=== PATIENT | female | born 1960 | race Caucasian/White ===

== ENCOUNTER → 2021-08-22 13:04 | Outpatient (BNVA) | payer OTHER, SELFPAY | PROVIDERS: Visit Provider Family Medicine | DX: R82.90 Unspecified abnormal findings in urine (principal); Z13.1 Encounter for screening for diabetes mellitus; Z72.0 Tobacco use; Z76.89 Persons encountering health services in other specified circumstances | CPT/HCPCS: 80053; 80061; 81000; 85025 ==

== ENCOUNTER 2021-09-28 08:09 | Day surgery (SDC) | payer OTHER, SELFPAY ==
[2021-09-25 13:25] VITALS: BMI 21.2
[2021-09-28 08:30] VITALS: BP 89/67; PULSE 63; RESP 16; TEMP 36.4; O2SAT 92
[2021-09-28] MEDS: sodium chloride 0.9% 1,000 ML 30 ML IV (08:38)
--- NOTE | 2021-09-28 10:16 | ANES.PREANE2 ---
Pre-Anesthetic Assessment Height/Weight: Height 1.6 m Weight 54.431 kg Temp Pulse Resp BP Pulse Ox 97.5 F L 63 16 89/67 92 09/28/21 08:30 09/28/21 08:30 09/28/21 08:30 09/28/21 08:30 09/28/21 08:30 Preop Diagnosis: need for colon cancer screening Operation Date: 09/28/21 09:30 Proposed Procedures p Colonoscopy 73226,Z12.11(Not Applicable) - Chapito Wheeler DO Familial anesthetic complications: None Was Beta Woody taken within 24 hours: N/A Was Clonidine taken within 24 hours: N/A Last intake: Intake Last Liquid Date 09/27/21 Last Liquid Time 22:00 Last Solid Date 09/26/21 Last Solid Time 21:00 Social Tobacco Exam alert, oriented x 3, clear to auscultation bilaterally and regular rate & rhythm Airway Submandibular: within normal limits Cervical ROM: within normal limits Mallampati: Class II Dentition: false History/ROS No significant complaints Pulmonary None reported CV/HEM None reported None reported Hepatic None reported GI None reported Metabolic None reported Musc/skel None reported Neuropsych None reported Anesthetic Plan ASA status: 2 Anesthesia: Anesthesia Evaluation, General and MAC Other: I discussed with the patient risks, goals, and benefits of MAC and general anesthesia. We discussed spectrum of MAC anesthesia including conversion to general as well as possibility of recall of intraoperative stimuli including discomfort/pain. Patient agrees to proceed with MAC. Risk of > 500 ml blood loss (7ml/kg in children): No Medications/Allergies Home Medications Medication Instructions Recorded Confirmed Last Taken Type No Known Home Medications 08/21/21 09/26/21 Unknown History Allergies Allergy/AdvReac Type Severity Reaction Status Date / Time No Known Allergies Allergy Verified 09/25/21 13:24 Current Medications Generic Name Dose Route Start Last Admin Trade Name Freq PRN Reason Stop Dose Admin Sodium Chloride 1,000 mls @ 30 mls/hr 09/28/21 08:30 09/28/21 08:38 Sodium Chloride 0.9% IV 09/29/21 08:29 30 mls/hr .Q24H MELVINA Administration PFSH Anesthesia Family History Mother Cancer Bladder cancer Family/Other Cancer Breast cancer Social History Smoking and tobacco status: current every day smoker (1 PPD 40+ year history) Data Anesthesia Cardiac Studies: No Data to Display
--- NOTE | 2021-09-28 10:20 | PM.HP ---
History of Present Illness Laurel Rinaldi is a 61 year old female who presents for a screening colonoscopy. She had a screening colonoscopy greater than 10 years ago that was reportedly within normal limits. She denies any symptoms. Review of Systems General: Reports: 10 or more systems reviewed and unremarkable except in HPI and below Medications/Allergies Home Medications Medication Instructions Recorded Confirmed Last Taken Type No Known Home Medications 08/21/21 09/26/21 Unknown History Allergies Allergy/AdvReac Type Severity Reaction Status Date / Time No Known Allergies Allergy Verified 09/25/21 13:24 PFSH Acute PFSH: Family History Mother Cancer Bladder cancer Family/Other Cancer Breast cancer Social History Smoking and tobacco status: current every day smoker (1 PPD 40+ year history) Vitals/I&O/Wt Last Vital Signs Temp 97.5 F L 09/28/21 08:30 Pulse 63 09/28/21 08:30 Resp 16 09/28/21 08:30 BP 89/67 09/28/21 08:30 Pulse Ox 92 09/28/21 08:30 Physical Exam Narrative: general : Patient is well developed , no acute distress, oriented x3 Head : Normal cephalic, a-traumatic. Ears : Pinnae and external canal are normal. Hearing is normal. Eyes : PERRLA, Sclera and injection are normal. No conjunctival discharge. Nose : Mucous membranes are without erythema. Throat : buccal mucosa is normal, gums are without significant recession or hypertrophy. Lungs : Equal chest rise bilaterally, no use of accessory muscles, trachea is midline. Cor : Rate and rhythm are normal. Abdomen : Soft, ND, NT, no g/r/m Extremities : No edema, no cyanosis or clubbing, dorsalis pedis pulses are present bilaterally, non-tender to palpation of calves. Upper extremities are normal bilaterally. Back : non-tender to palpation, no CVA tenderness. Neuro : CN II - XII intact, Upper and lower extremities have equal and full strength A&P Assessment and plan (1) Colon cancer screening: Status: Acute Plan Colonoscopy The risks and benefits of the procedure, including bleeding, infection, intestinal perforation requiring surgery, missed lesion, or explained to the patient. He is understanding of the risks and wishes to proceed. Attestations Medical Necessity Statement*: Patient will not be admitted patient will not be admitted to the hospital Coding Level of Care Code Acute Tubing Oiler for [facility] Fwd Diagnoses Colon cancer screening Z12.11
--- NOTE | 2021-09-28 10:55 | ANE.PACU2 ---
Documented by User: Brandi Santos CRNA 09/28/21 10:56 Inpatient post-anesthesia follow up: Airway intact: Yes Vital signs: Temperature 97.5 F Pulse Rate 63 Respiratory Rate 16 Blood Pressure 89/67 Pulse Oximetry 92 Oxygen Delivery Me thod Room Air Oxygen Flow Rate Fraction of Inspir ed Oxygen Hydration adequate: Yes Nausea and vomiting: No Pain level: 1 Mental status: Baseline
[2021-09-28 10:57] VITALS: BP 101/60; PULSE 63; RESP 16; TEMP 36.6; O2SAT 99
[2021-09-28 11:04] VITALS: BP 110/73; PULSE 57; RESP 16; TEMP 36.7; O2SAT 96
== END 2021-09-28 11:14 | disposition home or self-care (01) ==
PROVIDERS: Visit Provider Surgery
PROC: 0DJD8ZZ Inspection of Lower Intestinal Tract, Via Natural or Artificial Opening Endoscopic (ICD-10-PCS; CPT 45378; principal; 2021-09-28 09:30)
DX: Z12.11 Encounter for screening for malignant neoplasm of colon (principal); F17.210 Nicotine dependence, cigarettes, uncomplicated; D12.5 Benign neoplasm of sigmoid colon
CPT/HCPCS: 45385; 88305; J2704; J7030

== ENCOUNTER 2021-12-06 10:14 | Outpatient (CLI) | payer OTHER, SELFPAY ==
--- NOTE | 2021-12-06 10:18 | CT_ITS ---
WS: [email or web address] LDCT LUNG CANCER SCREENING TECHNIQUE: Noncontrast CT of the chest with coronal and sagittal reformatted images. CLINICAL INFORMATION: Z72.0 - Tobacco use COMPARISON: None. DLP: 73.72 mGy.cm DIvol: Mean CTDIvol: 1.60 (mGy) All CT scans at [facility] use at least one of these dose optimization techniques: automat ed exposure control; mA and/or kV adjustment per patient size (includes targeted exams where dose is matched to clinical indication); or iterative reconstruction. FINDINGS: Patchy semisolid nodular groundglass opacity in RIGHT middle lobe with bronchiectasis. This may be in fectious or inflammatory but nonspecific. Recommend 3 month interval follow-up chest CT. Patchy opaci ty measures 1.7 x 1.3 CM. Normal caliber thoracic aorta. Coronary calcification. Aortic calcification.Adrenal glands are normal . Normal GE junction. Low-attenuation change with suspected ductal dilatation in the malinda hepatis pa rtially visualized. This can be further evaluated with CT abdomen pelvis with contrast. No mediastinal or hilar lymphadenopathy. No axillary lymphadenopathy. CT/CT lung screening [id number] IMPRESSION: 1. Recommend three-month low-dose CT for the RIGHT middle lobe opacity 2. Recommend CT abdomen pelvis with contrast for further evaluation of the low -attenuation change in the malinda hepatis partially visualized. LUNG-RADS: 3S-Probably Benign with Significant Findings FOLLOW UP: 3 Month LDCT
== END 2021-12-06 10:15 | disposition home or self-care (01) ==
LOC: RAD 10:14
PROVIDERS: Visit Provider Family Medicine
DX: Z12.2 Encounter for screening for malignant neoplasm of respiratory organs (principal); Z72.0 Tobacco use
CPT/HCPCS: 71271

== ENCOUNTER 2022-01-24 11:01 | Outpatient (CLI) | payer OTHER, SELFPAY ==
--- NOTE | 2022-01-24 11:17 | MM_ITS ---
WS: [id number] SCREENING DIGITAL BREAST TOMOSYNTHESIS MAMMOGRAM WITH CAD HISTORY: Screening exam. COMPARISON: None available. Bilateral CC and MLO with tomosynthesis and synthetic mammography submitted. Computer aided detection analyzed. Breast composition: There are scattered areas of fibroglandular density. 8mm asymmetry in the posteri or lateral LEFT breast. This is seen only on one image and I suspect this is probably superimposed fi broglandular tissue. No suspicious calcifications. MM/[place] [id number] IMPRESSION: BI-RADS: 0-Incomplete: Need additional imaging evaluation FOLLOW UP: Need Additional Imaging LEFT breast: Spot compression views (CC ). True ML. Ultrasound to follow if abn ormality persists.
== END 2022-01-24 11:02 | disposition home or self-care (01) ==
LOC: RAD 11:01
PROVIDERS: PCP Family Medicine; Visit Provider Family Medicine
DX: Z12.31 Encounter for screening mammogram for malignant neoplasm of breast (principal)
CPT/HCPCS: 77063; 77067

== ENCOUNTER 2022-03-08 10:03 | Outpatient (CLI) | payer OTHER, SELFPAY ==
--- NOTE | 2022-03-08 10:07 | MM_ITS ---
WS: [email or web address] ADDITIONAL VIEWS LEFT MAMMOGRAM WITH DIGITAL BREAST TOMOSYNTHESIS. HISTORY: MASS COMPARISON: 01/24/2022 Spot compression views LEFT breast in CC projection and true ML submitted with digital breast tomosyn thesis and SM. The asymmetry seen in the posterior lateral LEFT breast resolves with additional imaging. There are n o residual suspicious findings. This was probably superimposed fibroglandular soft tissue. MM/[place] [id number] IMPRESSION: BI-RADS: 2-Benign FOLLOW UP: 1 Year Follow-up
[2022-03-08] MEDS: iohexol 350 mg/mL 500 mL Btl (per mL) IV (10:27)
[2022-03-08 11:31] LABS: Blood Urea Nitrogen 7 mg/dL (8-23); Glomerular Filtration Rate 63.4 mL/min (90-130)
--- NOTE | 2022-03-08 12:00 | CT_ITS ---
WS: [email or web address] CT ABDOMEN AND PELVIS WITH CONTRAST HISTORY: Evaluate liver for low-attenuation changes in the malinda hepatis. TECHNIQUE: Imaging performed of the abdomen and pelvis with IV contrast. Single phase imaging of the abdomen. Coronal and sagittal reformats are submitted. All CT scans at [facility] use at [address] one of these dose optimization techniques: automated exposure control; mA and/or kV adjustment per patient size (includes targeted exams where dose is matched to clinical indication); or iterative re construction. IV CONTRAST: Omnipaque 350; 95 mL IV. Oral contrast: No DLP: 631.96 mGy.cm COMPARISON: 12/06/2021 Lower thorax: Lung bases are clear. Heart is normal size. No hiatal hernia. Liver/biliary system: Liver is mildly enlarged extending to the iliac crest. Low attenuation along th e falciform ligament from focal fatty sparing. There is no hepatic mass identified. Normal enhancemen t of the portal vein. Gallbladder: Normal. No gallstones or wall thickening. No pericholecystic fluid. Pancreas: Normal size pancreas and pancreatic duct. No adjacent inflammation. Spleen: Normal size spleen. No mass or infarct. Adrenal glands: Normal. Right kidney: Normal size RIGHT kidney. Too small to characterize 5 mm hypodensity in the upper pole. Focal cortical scarring in the lower pole. No obstruction or solid mass. Left kidney: Cortical hypodensities in the upper pole. The largest is a cyst. The smaller one is too small to characterize. No obstruction or mass. Aorta: Mild atherosclerosis with no aneurysm. Lymphadenopathy: None. Free fluid: None. GI tract: Nondistended stomach and small bowel. No oral contrast was given for this examination. The appendix is normal. No obstruction of the colon. Abdominal wall: Unremarkable abdominal wall. No hernia. Pelvis: No free fluid or adenopathy within the pelvis. Prior tubal ligation. Bones: Schmorl's nodes superior endplate of L4. CT/CT abdomen pelvis w con* [id number] IMPRESSION: 1. No central hepatic mass. Changes on the recent CT were secondary to a combi nation of hepatic steatosis and focal fatty sparing. 2. Bilateral low-attenuation renal masses are too small to characterize. 3. Atherosclerosis aorta. 4. No GI tract obstruction.
== END 2022-03-08 10:04 | disposition home or self-care (01) ==
LOC: RAD 10:04
PROVIDERS: PCP Family Medicine; Visit Provider Family Medicine
DX: R93.89 Abnormal findings on diagnostic imaging of other specified body structures (principal); R93.2 Abnormal findings on diagnostic imaging of liver and biliary tract; N63.20 Unspecified lump in the left breast, unspecified quadrant; I70.0 Atherosclerosis of aorta
CPT/HCPCS: 74177; 77061; 82565; 84520; G0279

== ENCOUNTER → 2022-10-08 09:52 | Outpatient (BNVA) | payer OTHER, SELFPAY | PROVIDERS: PCP Family Medicine; Visit Provider Emergency Medicine | DX: M25.572 Pain in left ankle and joints of left foot (principal); M79.672 Pain in left foot | CPT/HCPCS: 73610; 73630 ==

== ENCOUNTER → 2024-01-08 09:49 | Outpatient (BNVA) | payer MEDICAID, SELFPAY | PROVIDERS: PCP Family Medicine; Visit Provider Family Medicine | DX: Z13.1 Encounter for screening for diabetes mellitus (principal); Z13.220 Encounter for screening for lipoid disorders; Z13.6 Encounter for screening for cardiovascular disorders; Z12.4 Encounter for screening for malignant neoplasm of cervix | CPT/HCPCS: 80053; 80061; 87624 ==

== ENCOUNTER 2024-01-23 10:00 | Outpatient (CLI) | payer MEDICAID, SELFPAY ==
--- NOTE | 2024-01-23 10:00 | CT_ITS ---
WS: [email or web address] LDCT LUNG CANCER SCREENING HISTORY: Z12.2 - Encounter for screening for malignant neoplasm of... TECHNIQUE: Axial imaging performed from the apices to 1 cm below the costophrenic angles. Coronal and sagittal reformats are submitted with axial MIP series. All CT scans at [facility] use at least one of these dose optimization techniques: automated exposure control; mA and/or kV adjustment per patient size (includes targeted exams where dose is matched to clinical indication); or iterativ e reconstruction. DLP: 41.92 mGy.cm DIvol: Mean CTDIvol: 0.60 (mGy) COMPARISON: 12/06/2021 Diagnostic quality: Satisfactory Lungs: Lungs are moderately hyperinflated. Linear and nodular opacification in the RIGHT middle lobe is reidentified. Mild associated bronchiectasis at the site of the nodular opacification. There is be en no increase in size. No new pulmonary mass or nodule. Chronic emphysema. Heart: Normal size heart with no pericardial effusion.. Other findings: Normal size aorta and pulmonary artery. No adenopathy identified but the hilar region s are poorly visualized without contrast. CT/CT lung screening [id number] IMPRESSION: LUNG-RADS: 2-Benign Appearance or Behavior FOLLOW UP: 12 Month: Continue annual screening with LDCT OTHER FINDINGS (S MODIFIER): None.
--- NOTE | 2024-01-23 14:00 | MM_ITS ---
WS: [email or web address] BILATERAL SCREENING DIGITAL TOMOSYNTHESIS MAMMOGRAM WITH CAD HISTORY: Z12.39 - Encounter for other screening for malignant neop... COMPARISON: 01/24/2022, 03/08/2022, Bilateral CC and MLO views with tomosynthesis and synthetic mammography submitted. Computer aided det ection analyzed. Breast composition: There are scattered areas of fibroglandular density. No suspicious masses, microc alcifications or architectural distortion. Focal asymmetry in the posterior RIGHT breast was also pre sent on the prior study from 2021. There are a few benign scattered calcifications within each breast . No suspicious grouping of calcifications. MM/MM scr BI tomosynthesis [id number] IMPRESSION: BI-RADS: 2 - Benign. FOLLOW UP: 1 Year Follow-up
--- NOTE | 2024-01-23 14:30 | XR_ITS ---
WS: [email or web address] DEXA (DUAL ENERGY X-RAY ABSORPTIOMETRY) Bone mineral density was performed using a [employer] machine. HISTORY: Z13.820 - Encounter for screening for osteoporosis COMPARISON: None available. Lumbar spine BMD (L1-L4): 0.980 g/cm2 T score: -1.7 Z score: 0.6 Total hip BMD: Left: 0.689 g/cm2. T score: -2.5 Z score: -0.9 Right: 0.704 g/cm2. T score: -2.4 Z score: -0.7 10 year probability of a major osteoporotic fracture is 12.5%. XR/XR DEXA axial skeleton* [id number] IMPRESSION: OSTEOPOROSIS based upon the WHO classification for females.
== END 2024-01-23 10:01 | disposition home or self-care (01) ==
PROVIDERS: PCP Family Medicine; Visit Provider Family Medicine
DX: Z12.31 Encounter for screening mammogram for malignant neoplasm of breast (principal); Z12.2 Encounter for screening for malignant neoplasm of respiratory organs; F17.210 Nicotine dependence, cigarettes, uncomplicated; Z13.820 Encounter for screening for osteoporosis; Z78.0 Asymptomatic menopausal state; R92.323 Mammographic fibroglandular density, bilateral breasts; N64.89 Other specified disorders of breast; R92.1 Mammographic calcification found on diagnostic imaging of breast; J43.9 Emphysema, unspecified; M81.0 Age-related osteoporosis without current pathological fracture
CPT/HCPCS: 71271; 77063; 77067; 77080

== ENCOUNTER → 2025-04-01 13:47 | Outpatient (BNVA) | payer MEDICARE, SELFPAY | PROVIDERS: PCP Family Medicine; Visit Provider Family Medicine | DX: Z13.6 Encounter for screening for cardiovascular disorders (principal); Z13.1 Encounter for screening for diabetes mellitus | CPT/HCPCS: 80053; 80061 ==

== ENCOUNTER 2025-04-12 13:08 | Outpatient (CLI) | payer MEDICARE, SELFPAY ==
--- NOTE | 2025-04-12 13:40 | MM_ITS ---
WS: [email or web address] BILATERAL 3D TOMOSYNTHESIS DIGITAL SCREENING MAMMOGRAPHY WITH CAD CLINICAL INFORMATION: Z12.39 - Encounter for other screening for malignant neop... HISTORY: Screening mammogram. No current complaints. COMPARISON: 2023 TECHNIQUE: Bilateral CC and MLO views. FINDINGS: Scattered fibroglandular densities bilaterally. No suspicious focal mass, asymmetry, calcifications, or architectural distortion. No evidence of malignancy. Incidental punctate calcification RIGHT breast MM/MM scr BI tomosynthesis [id number] IMPRESSION: DENSITY: There are scattered areas of fibroglandular density. BI-RADS: 2 - Benign. FOLLOW UP: 1 Year Follow-up Recommend return to annual screening mammography.
--- NOTE | 2025-04-12 14:15 | CT_ITS ---
WS: [email or web address] LDCT LUNG CANCER SCREENING HISTORY: F17.210 - Nicotine dependence, cigarettes, uncomplicated TECHNIQUE: Axial imaging performed from the apices to 1 cm below the costophrenic angles. Coronal and sagittal reformats are submitted with axial MIP series. All CT scans at [facility] use at least one of these dose optimization techniques: automated exposure control; mA and/or kV adjustment per patient size (includes targeted exams where dose is matched to clinical indication); or iterative reconstruction. DLP: 43.99 mGy.cm DIvol: Mean CTDIvol: 0.70 (mGy) COMPARISON: 01/23/2024 Diagnostic quality: Satisfactory Lungs: Stable linear nodular opacification in the RIGHT middle lobe with associated bronchiectasis. No mass or nodule. No pneumonia. Pulmonary hyperexpansion from emphysema. Heart: Normal size heart with no pericardial effusion.. Other findings: Mild atherosclerosis aorta. Normal size pulmonary artery. Negative upper abdomen. CT/CT lung screening [id number] IMPRESSION: LUNG-RADS: 2-Benign Appearance or Behavior FOLLOW UP: 12 Month: Continue annual screening with LDCT OTHER FINDINGS (S MODIFIER): None.
== END 2025-04-12 13:09 | disposition home or self-care (01) ==
LOC: RAD 13:10
PROVIDERS: PCP Family Medicine; Visit Provider Family Medicine
DX: Z12.31 Encounter for screening mammogram for malignant neoplasm of breast (principal); Z12.2 Encounter for screening for malignant neoplasm of respiratory organs; F17.210 Nicotine dependence, cigarettes, uncomplicated; J43.9 Emphysema, unspecified; I70.0 Atherosclerosis of aorta; R92.323 Mammographic fibroglandular density, bilateral breasts; R92.1 Mammographic calcification found on diagnostic imaging of breast
CPT/HCPCS: 71271; 77063; 77067